=== PATIENT | female | born 1940 | race Caucasian/White ===

== ENCOUNTER 2018-11-21 02:17 | Inpatient (IN) | payer OTHER ==
[~2018-11-21] VITALS: Ht 167.6 cm; Wt 64.9 kg
[2018-11-21] MEDS ORDERED: COZAAR25 MG (02:28)
[2018-11-21] MEDS ORDERED: GLUMETZA500 MG (02:28)
--- NOTE | 2018-11-21 02:28 | NUR ---
PT ALERTA Y ORIETNADA X3 ESFERAS SE RECIBE DESDE AMBULANCIA POR FAMILIARES Y PARAMEDICOS. REFIERE CAIDA EN AEROPUERTO DE SANDER DUMONT. EL EDGAR DE ISRA. PT INDICA DOLOR DESDE LA CADERA LADO IZQUIERDA.
--- NOTE | 2018-11-21 07:50 | NUR ---
SE RECIBE PACIENTE DE TURNO ANTERIOR.EN CAMA CON LAS BARANDAS ELEVADAS. ESTA ALERTA Y ORIENTADA ACOMPANADA POR FAMLIAR.MUESTRAS TOMADAS ALINA ORDENADAS.ES ORIENTADA SOBRE PROCEDIMIETOS A LLEVARSE A CABO,LO CUAL REFIERE COMPRENDER,
[2018-11-24] MEDS ORDERED: LOSARTAN POTASS50 MG PO (13:14)
[2018-11-24] MEDS ORDERED: SENOKOT-S TABL1 EACH PO (13:14)
[2018-11-24] MEDS ORDERED: XARELTO10 MG PO (13:14)
[2018-11-24] MEDS ORDERED: INTEGRA F CAPS1 EACH PO (13:14)
[2018-11-24] MEDS ORDERED: GLUMETZA500 MG PO (13:15)
== END 2018-11-24 15:33 | disposition home or self-care (01) | DRG 481 ==
LOC: ER 02:17 → SURH 11:06 → SEC-K 11:06 → O/R 11:06 → SURH 18:23
PROVIDERS: Orthopaedic Surgery; ADMIT Internal Medicine
PROC: BW2GZZZ Computerized Tomography (CT Scan) of Pelvic Region (ICD-10-PCS; 2018-11-21)
PROC: 0QHC36Z Insertion of Intramedullary Internal Fixation Device into Left Lower Femur, Percutaneous Approach (ICD-10-PCS; principal; 2018-11-21 13:00)
DX: S72.142A Displaced intertrochanteric fracture of left femur, initial encounter for closed fracture (principal); D62 Acute posthemorrhagic anemia; W18.39XA Other fall on same level, initial encounter; G89.18 Other acute postprocedural pain; E11.9 Type 2 diabetes mellitus without complications; I10 Essential (primary) hypertension; Z88.0 Allergy status to penicillin; Z91.013 Allergy to seafood

== ENCOUNTER 2018-12-07 10:00 | Outpatient (CLI) | payer OTHER ==
[~2018-12-07 10:00] MED LIST: COZAAR25 MG; GLUMETZA500 MG; GLUMETZA500 MG PO; INTEGRA F CAPS1 EACH PO; LOSARTAN POTASS50 MG PO; SENOKOT-S TABL1 EACH PO; XARELTO10 MG PO
== END 2018-12-07 10:16 | disposition home or self-care (01) ==
LOC: RAD 501 10:00
DX: S72.145D Nondisplaced intertrochanteric fracture of left femur, subsequent encounter for closed fracture with routine healing (principal)

== ENCOUNTER 2018-12-16 08:41 | Outpatient (CLI) | payer OTHER | END 2018-12-16 13:06 | disposition home or self-care (01) | LOC: LAB 08:41 | DX: E55.9 Vitamin D deficiency, unspecified (principal); M85.88 Other specified disorders of bone density and structure, other site; E21.3 Hyperparathyroidism, unspecified; E88.89 Other specified metabolic disorders; M81.8 Other osteoporosis without current pathological fracture; E56.1 Deficiency of vitamin K ==

== ENCOUNTER 2018-12-28 13:38 | Outpatient (CLI) | payer OTHER | END 2018-12-28 13:50 | disposition home or self-care (01) | LOC: RAD 501 13:38 | DX: S72.145D Nondisplaced intertrochanteric fracture of left femur, subsequent encounter for closed fracture with routine healing (principal); M54.5 Low back pain ==

== ENCOUNTER 2023-06-27 12:27 | Emergency (ER) | payer OTHER ==
[~2023-06-27] VITALS: Ht 167.6 cm; Wt 49.9 kg
[2023-06-27] MEDS ORDERED: OLANZAPINE2.5 MG PO (13:03)
== END 2023-06-27 17:55 | disposition home or self-care (01) ==
LOC: ER 12:27
PROVIDERS: Emergency Medicine
DX: M13.88 Other specified arthritis, other site (principal); E11.9 Type 2 diabetes mellitus without complications; Z79.84 Long term (current) use of oral hypoglycemic drugs; I10 Essential (primary) hypertension; Z88.0 Allergy status to penicillin